=== PATIENT | male | born 1965 | race Asian ===

== ENCOUNTER → 2016-07-02 | Outpatient (CLI) | payer OTHER ==
[~2016-07-02] MED LIST: NAPR220C15 PO
[2016-07-02 11:44] LABS: BASOPHILS % (AUTO) 0.7 % (0.0-2.0); EOSINOPHILS % (AUTO) 2.8 % (1.0-6.0); HEMATOCRIT 51.8 % (41-53); LYMPHOCYTES % (AUTO) 27.7 % (22.0-44.0); MEAN CORPUSCULAR HEMOGLOBIN 29.2 pg (26.0-34.0); MEAN CORPUSCULAR HGB CONC 32.9 G/dL (31.0-37.0); MEAN CORPUSCULAR VOLUME 89 fL (80-100); MONOCYTES # (AUTO) 0.8 K/uL (0.1-1.0); MONOCYTES % (AUTO) 7.4 % (2.0-9.0); NEUTROPHILS # (AUTO) 6.6 K/uL (1.8-7.7); NEUTROPHILS % (AUTO) 61.4 % (40.0-70.0); PLATELET COUNT (AUTO) 280 K/uL (150-450); RED BLOOD CELL COUNT(AUTO) 5.82 MIL/uL (4.50-5.90); RED CELL DISTRIBUTION WIDTH 14.5 % (11.5-14.5); WHITE BLOOD COUNT (AUTO) 10.7 K/uL (4.5-11.0)
[2016-07-02 12:08] LABS: ALANINE AMINOTRANSFERASE 39 U/L (12-78); ALBUMIN 4.1 g/dL (3.4-5.0); ANION GAP 10 mmol/L (8-16); ASPARTATE AMINOTRANSFERASE 27 U/L (15-37); BILIRUBIN,TOTAL 0.5 mg/dL (0.1-1.0); CALCIUM, TOTAL 8.6 mg/dL (8.8-10.5); CARBON DIOXIDE 26 mmol/L (22-29); CHLORIDE 104 mmol/L (98-107); CHOL/HDL RATIO 3.4 (4.2-7.3); CREATININE 0.77 mg/dL (0.60-1.30); GLOMERULAR FILTR. RATE CALC > 60 mL/min (>60); SODIUM SERUM 140 mmol/L (136-145); TOTAL PROTEIN, SERUM 8.2 g/dL (6.4-8.2); UREA NITROGEN, BLOOD 13 mg/dL (7-18)
== END | disposition home or self-care (01) ==
LOC: LABPV 11:09
PROVIDERS: ATTEND Internal Medicine
DX: E78.2 Mixed hyperlipidemia (principal); R73.09 Other abnormal glucose
CPT/HCPCS: 83036; 84443

== ENCOUNTER → 2016-08-22 | Outpatient (CLI) | payer OTHER | END | disposition home or self-care (01) | LOC: EMPHLTH 12:18 | PROVIDERS: ATTEND Internal Medicine | DX: R76.11 Nonspecific reaction to tuberculin skin test without active tuberculosis (principal) ==

== ENCOUNTER → 2017-02-27 | Outpatient (CLI) | payer OTHER ==
[2017-02-27 08:04] LABS: HEMOGLOBIN A1C 6.1 % (4.5-6.2)
[2017-02-27 08:25] LABS: ALANINE AMINOTRANSFERASE 41 U/L (12-78); ALBUMIN 4.1 g/dL (3.4-5.0); ANION GAP 8 mmol/L (8-16); ASPARTATE AMINOTRANSFERASE 33 U/L (15-37); BILIRUBIN,TOTAL 0.4 mg/dL (0.1-1.0); CALCIUM, TOTAL 9.3 mg/dL (8.8-10.5); CARBON DIOXIDE 26 mmol/L (22-29); CHLORIDE 103 mmol/L (98-107); CHOL/HDL RATIO 3.5 (4.2-7.3); CREATININE 0.88 mg/dL (0.60-1.30); GLOMERULAR FILTR. RATE CALC > 60 mL/min (>60); POTASSIUM 3.9 mmol/L (3.5-5.1); SODIUM SERUM 137 mmol/L (136-145); THYROID STIMULATING HORMONE 1.48 uIU/mL (0.36-3.74); TOTAL PROTEIN, SERUM 8.3 g/dL (6.4-8.2); UREA NITROGEN, BLOOD 14 mg/dL (7-18)
== END | disposition home or self-care (01) ==
LOC: LABPV 07:37
PROVIDERS: ATTEND Internal Medicine
DX: E78.2 Mixed hyperlipidemia (principal); R73.09 Other abnormal glucose
CPT/HCPCS: 83036; 84443

== ENCOUNTER → 2017-08-11 | Outpatient (CLI) | payer OTHER ==
[2017-08-11 07:50] LABS: BASOPHILS % (AUTO) 0.3 % (0.0-2.0); EOSINOPHILS % (AUTO) 2.7 % (1.0-6.0); HEMATOCRIT 50.2 % (41-53); HEMOGLOBIN 17.1 g/dL (13.5-17.5); LYMPHOCYTES # (AUTO) 2.4 K/uL (1.0-4.8); LYMPHOCYTES % (AUTO) 24.4 % (22.0-44.0); MEAN CORPUSCULAR HEMOGLOBIN 29.9 pg (26.0-34.0); MEAN CORPUSCULAR VOLUME 88 fL (80-100); MONOCYTES # (AUTO) 0.7 K/uL (0.1-1.0); MONOCYTES % (AUTO) 7.4 % (2.0-9.0); NEUTROPHILS # (AUTO) 6.3 K/uL (1.8-7.7); NEUTROPHILS % (AUTO) 65.2 % (40.0-70.0); PLATELET COUNT (AUTO) 296 K/uL (150-450); RED BLOOD CELL COUNT(AUTO) 5.72 MIL/uL (4.50-5.90); RED CELL DISTRIBUTION WIDTH 14.4 % (11.5-14.5)
[2017-08-11 08:03] LABS: ALANINE AMINOTRANSFERASE 55 U/L (12-78); ALBUMIN 3.9 g/dL (3.4-5.0); ALKALINE PHOSPHATASE 100 U/L (46-116); ANION GAP 9 mmol/L (8-16); ASPARTATE AMINOTRANSFERASE 31 U/L (15-37); BILIRUBIN,TOTAL 0.5 mg/dL (0.1-1.0); CALCIUM, TOTAL 9.3 mg/dL (8.8-10.5); CARBON DIOXIDE 26 mmol/L (22-29); CHLORIDE 103 mmol/L (98-107); CHOL/HDL RATIO 3.4 (4.2-7.3); CHOLESTEROL 171 mg/dL (131-200); CREATININE 0.87 mg/dL (0.60-1.30); GLOMERULAR FILTR. RATE CALC > 60 mL/min (>60); GLUCOSE,RANDOM 93 mg/dL (70-110); HDL CHOLESTEROL 51 mg/dL (40-60); LDL CHOL (CALC.) 102 mg/dL (0-130); POTASSIUM 4.2 mmol/L (3.5-5.1); SODIUM SERUM 138 mmol/L (136-145); THYROID STIMULATING HORMONE 1.32 uIU/mL (0.36-3.74); TOTAL PROTEIN, SERUM 8.3 g/dL (6.4-8.2); TRIGLYCERIDES 88 mg/dL (15-150); UREA NITROGEN, BLOOD 13 mg/dL (7-18)
[2017-08-11 08:14] LABS: HEMOGLOBIN A1C 5.8 % (4.5-6.2)
[2017-08-11 08:19] LABS: PROSTATE SPECIFIC ANTIGEN 1.01 ng/mL (0.00-4.00)
[2017-08-11 09:02] LABS: APPEARANCE,URINE CLEAR (CLEAR); BILIRUBIN,URINE NEGATIVE (NEGATIVE); GLUCOSE, URINE (UA) NEGATIVE (NEGATIVE); KETONES,URINE NEGATIVE (NEGATIVE); LEUKOCYTE ESTERASE ,URINE NEGATIVE (NEGATIVE); NITRATE,URINE NEGATIVE (NEGATIVE); OCCULT BLOOD,URINE NEGATIVE (NEGATIVE); PROTEIN,URINE NEGATIVE (NEGATIVE); UROBILINOGEN,URINE 0.2 mg/dL (<=1.0)
[2017-08-11 09:45] LABS: ERYTHROCYTE SEDIMENTATION RATE 5 MM/HR (0-15)
== END | disposition home or self-care (01) ==
LOC: LABPV 07:07
PROVIDERS: ATTEND Internal Medicine
DX: E78.5 Hyperlipidemia, unspecified (principal); N40.0 Benign prostatic hyperplasia without lower urinary tract symptoms; R73.03 Prediabetes
CPT/HCPCS: 83036; 84153; 84443; 85651

== ENCOUNTER → 2017-12-30 | Outpatient (CLI) | payer OTHER | END | disposition home or self-care (01) | LOC: RADPV 13:04 | PROVIDERS: ATTEND Internal Medicine | DX: L74.513 Primary focal hyperhidrosis, soles (principal); R42 Dizziness and giddiness; I10 Essential (primary) hypertension; E78.2 Mixed hyperlipidemia; Z87.891 Personal history of nicotine dependence; Z79.899 Other long term (current) drug therapy | CPT/HCPCS: 93306; 93880 ==

== ENCOUNTER → 2018-04-29 | Outpatient (CLI) | payer OTHER ==
[2018-04-29 15:00] LABS: ALANINE AMINOTRANSFERASE 31 U/L (12-78); ALBUMIN 3.7 g/dL (3.4-5.0); ALKALINE PHOSPHATASE 99 U/L (46-116); ANION GAP 7 mmol/L (8-16); ASPARTATE AMINOTRANSFERASE 25 U/L (15-37); BILIRUBIN,TOTAL 0.2 mg/dL (0.1-1.0); CALCIUM, TOTAL 8.9 mg/dL (8.8-10.5); CARBON DIOXIDE 27 mmol/L (22-29); CHLORIDE 104 mmol/L (98-107); CHOL/HDL RATIO 3.9 (4.2-7.3); CHOLESTEROL 190 mg/dL (131-200); GLOMERULAR FILTR. RATE CALC > 60 mL/min (>60); GLUCOSE,RANDOM 74 mg/dL (70-110); HDL CHOLESTEROL 49 mg/dL (40-60); LDL CHOL (CALC.) 114 mg/dL (0-130); SODIUM SERUM 138 mmol/L (136-145); TOTAL PROTEIN, SERUM 7.6 g/dL (6.4-8.2); TRIGLYCERIDES 133 mg/dL (15-150); UREA NITROGEN, BLOOD 17 mg/dL (7-18)
[2018-04-29 15:13] LABS: PROSTATE SPECIFIC ANTIGEN 1.03 ng/mL (0.00-4.00)
[2018-04-29 19:24] LABS: BASOPHILS % (AUTO) 1.3 % (0.0-2.0); HEMATOCRIT 47.6 % (41-53); HEMOGLOBIN 15.9 g/dL (13.5-17.5); LYMPHOCYTES # (AUTO) 3.4 K/uL (1.0-4.8); LYMPHOCYTES % (AUTO) 35.4 % (22.0-44.0); MEAN CORPUSCULAR HEMOGLOBIN 30.3 pg (26.0-34.0); MEAN CORPUSCULAR HGB CONC 33.5 G/dL (31.0-37.0); MEAN CORPUSCULAR VOLUME 91 fL (80-100); MONOCYTES # (AUTO) 0.8 K/uL (0.1-1.0); MONOCYTES % (AUTO) 8.1 % (2.0-9.0); NEUTROPHILS % (AUTO) 52.2 % (40.0-70.0); PLATELET COUNT (AUTO) 277 K/uL (150-450); RED BLOOD CELL COUNT(AUTO) 5.26 MIL/uL (4.50-5.90); RED CELL DISTRIBUTION WIDTH 13.9 % (11.5-14.5)
== END | disposition home or self-care (01) ==
LOC: LABPV 14:01
PROVIDERS: ATTEND Internal Medicine
DX: E78.2 Mixed hyperlipidemia (principal); N40.1 Benign prostatic hyperplasia with lower urinary tract symptoms; R73.09 Other abnormal glucose; F17.200 Nicotine dependence, unspecified, uncomplicated
CPT/HCPCS: 83036; 84153

== ENCOUNTER → 2018-10-06 | Outpatient (CLI) | payer OTHER | END | disposition home or self-care (01) | LOC: RADMN 08:22 | PROVIDERS: ATTEND Specialist | DX: I67.82 Cerebral ischemia (principal) | CPT/HCPCS: 70551 ==

== ENCOUNTER → 2019-12-22 | Outpatient (CLI) | payer OTHER | END | disposition home or self-care (01) | LOC: EMS 12:01 | DX: Z20.828 Contact with and (suspected) exposure to other viral communicable diseases (principal) | CPT/HCPCS: U0003-CS ==

== ENCOUNTER → 2020-03-22 | Outpatient (CLI) | payer OTHER ==
[2020-03-22 11:18] LABS: BASOPHILS % (AUTO) 1.3 % (0.0-2.0); EOSINOPHILS % (AUTO) 2.1 % (1.0-6.0); HEMATOCRIT 50.1 % (41-53); HEMOGLOBIN 16.5 g/dL (13.5-17.5); LYMPHOCYTES # (AUTO) 2.4 K/uL (1.0-4.8); LYMPHOCYTES % (AUTO) 27.4 % (22.0-44.0); MEAN CORPUSCULAR VOLUME 91 fL (80-100); MONOCYTES # (AUTO) 0.7 K/uL (0.1-1.0); MONOCYTES % (AUTO) 7.8 % (2.0-9.0); NEUTROPHILS # (AUTO) 5.4 K/uL (1.8-7.7); NEUTROPHILS % (AUTO) 61.4 % (40.0-70.0); PLATELET COUNT (AUTO) 290 K/uL (150-450); RED CELL DISTRIBUTION WIDTH 14.6 % (11.5-14.5)
[2020-03-22 11:21] LABS: HEMOGLOBIN A1C 5.7 % (3.8-5.6)
[2020-03-22 11:35] LABS: ALANINE AMINOTRANSFERASE 32 U/L (12-78); ALBUMIN 3.9 g/dL (3.4-5.0); ALKALINE PHOSPHATASE 104 U/L (46-116); ANION GAP 9 mmol/L (8-16); ASPARTATE AMINOTRANSFERASE 31 U/L (15-37); BILIRUBIN,TOTAL 0.5 mg/dL (0.1-1.0); CALCIUM, TOTAL 9.1 mg/dL (8.8-10.5); CARBON DIOXIDE 26 mmol/L (22-29); CHLORIDE 106 mmol/L (98-107); CHOL/HDL RATIO 3.7 (4.2-7.3); CHOLESTEROL 221 mg/dL (131-200); CREATININE 0.84 mg/dL (0.60-1.30); GLOMERULAR FILTR. RATE CALC > 60 mL/min (>60); GLUCOSE,RANDOM 86 mg/dL (70-110); HDL CHOLESTEROL 60 mg/dL (40-60); LDL CHOL (CALC.) 149 mg/dL (0-130); POTASSIUM 4.4 mmol/L (3.5-5.1); SODIUM SERUM 141 mmol/L (136-145); THYROID STIMULATING HORMONE 1.14 uIU/mL (0.36-3.74); TOTAL PROTEIN, SERUM 8.1 g/dL (6.4-8.2); TRIGLYCERIDES 60 mg/dL (15-150); UREA NITROGEN, BLOOD 12 mg/dL (7-18)
== END | disposition home or self-care (01) ==
LOC: LABPV 07:26
PROVIDERS: ATTEND Internal Medicine
DX: E11.9 Type 2 diabetes mellitus without complications (principal); E78.5 Hyperlipidemia, unspecified
CPT/HCPCS: 83036; 84443

== ENCOUNTER → 2020-03-26 | Outpatient (CLI) | payer OTHER | END | disposition home or self-care (01) | LOC: RADPV 07:50 | PROVIDERS: ATTEND Internal Medicine | DX: R19.04 Left lower quadrant abdominal swelling, mass and lump (principal) | CPT/HCPCS: 76700 ==

== ENCOUNTER → 2020-08-17 | Outpatient (CLI) | payer OTHER | END | disposition home or self-care (01) | LOC: RADMN 10:42 | PROVIDERS: ATTEND Internal Medicine | DX: R76.11 Nonspecific reaction to tuberculin skin test without active tuberculosis (principal) | CPT/HCPCS: 71045 ==

== ENCOUNTER 2021-02-14 09:28 | Emergency (ER) | payer OTHER ==
[~2021-02-14] VITALS: Ht 167.6 cm; Wt 72.7 kg
[2021-02-14 10:14] VITALS: BP 137/72
== END 2021-02-14 10:30 | disposition home or self-care (01) ==
LOC: EMS 09:34
DX: L03.211 Cellulitis of face (principal); L02.01 Cutaneous abscess of face
CPT/HCPCS: 99283

== ENCOUNTER 2021-02-18 09:45 | Emergency (ER) | payer OTHER ==
[~2021-02-18] VITALS: Ht 170.2 cm; Wt 73.6 kg
[2021-02-18 09:48] VITALS: BP 127/80
== END 2021-02-18 13:17 | disposition home or self-care (01) ==
LOC: EMS 09:46
DX: L03.211 Cellulitis of face (principal); L02.01 Cutaneous abscess of face
CPT/HCPCS: 10060; 99281; 99282; Z7502

== ENCOUNTER 2022-01-24 10:21 | Emergency (ER) | payer OTHER ==
[~2022-01-24] VITALS: Ht 172.7 cm; Wt 72.7 kg
[2022-01-24] MEDS ORDERED: KETOROLAC TROMETHAMINE 60 MG/2 ML VIAL IM ONE (11:15)
[2022-01-24] MEDS ORDERED: IBUP-2070 PO (12:30)
[2022-01-24 12:41] VITALS: BP 146/85
== END 2022-01-24 12:45 | disposition home or self-care (01) ==
LOC: EMS 10:25
DX: R51.9 Headache, unspecified (principal); F17.210 Nicotine dependence, cigarettes, uncomplicated
CPT/HCPCS: 99284; 70450; 96372; J1885

== ENCOUNTER → 2022-01-30 | Outpatient (CLI) | payer OTHER ==
[~2022-01-30] MED LIST changes: +IBUP-2070 PO
[2022-01-30 06:49] LABS: BASOPHILS % (AUTO) 1.4 % (0.0-2.0); EOSINOPHILS % (AUTO) 1.7 % (1.0-6.0); HEMATOCRIT 48.6 % (41-53); HEMOGLOBIN 16.3 g/dL (13.5-17.5); LYMPHOCYTES # (AUTO) 3.7 K/uL (1.0-4.8); LYMPHOCYTES % (AUTO) 39.7 % (22.0-44.0); MEAN CORPUSCULAR HEMOGLOBIN 30.2 pg (26.0-34.0); MEAN CORPUSCULAR HGB CONC 33.6 G/dL (31.0-37.0); MEAN CORPUSCULAR VOLUME 90 fL (80-100); MONOCYTES # (AUTO) 0.8 K/uL (0.1-1.0); MONOCYTES % (AUTO) 8.7 % (2.0-9.0); NEUTROPHILS # (AUTO) 4.5 K/uL (1.8-7.7); NEUTROPHILS % (AUTO) 48.5 % (40.0-70.0); PLATELET COUNT (AUTO) 274 K/uL (150-450); RED BLOOD CELL COUNT(AUTO) 5.39 MIL/uL (4.50-5.90); RED CELL DISTRIBUTION WIDTH 14.3 % (11.5-14.5)
[2022-01-30 07:02] LABS: HEMOGLOBIN A1C 5.8 % (3.8-5.6)
[2022-01-30 07:21] LABS: ALANINE AMINOTRANSFERASE 47 U/L (12-78); ALBUMIN 3.8 g/dL (3.4-5.0); ALKALINE PHOSPHATASE 91 U/L (46-116); ANION GAP 9 mmol/L (8-16); ASPARTATE AMINOTRANSFERASE 23 U/L (15-37); BILIRUBIN,TOTAL 0.5 mg/dL (0.1-1.0); CALCIUM, TOTAL 9.1 mg/dL (8.8-10.5); CARBON DIOXIDE 26 mmol/L (22-29); CHLORIDE 105 mmol/L (98-107); CHOL/HDL RATIO 3.2 (4.2-7.3); CHOLESTEROL 194 mg/dL (131-200); CREATININE 0.98 mg/dL (0.60-1.30); GLUCOSE,RANDOM 100 mg/dL (70-110); HDL CHOLESTEROL 61 mg/dL (40-60); LDL CHOL (CALC.) 116 mg/dL (0-130); POTASSIUM 3.9 mmol/L (3.5-5.1); SODIUM SERUM 140 mmol/L (136-145); THYROID STIMULATING HORMONE 1.43 uIU/mL (0.36-3.74); TOTAL PROTEIN, SERUM 7.5 g/dL (6.4-8.2); TRIGLYCERIDES 87 mg/dL (15-150); UREA NITROGEN, BLOOD 18 mg/dL (7-18)
[2022-01-30 07:22] LABS: GLOMERULAR FILTR. RATE CALC > 60 mL/min (>60)
[2022-01-30 07:23] LABS: PROSTATE SPECIFIC ANTIGEN 1.26 ng/mL (0.00-4.00)
== END | disposition home or self-care (01) ==
LOC: EEVIPCON 05:50 → LABMN 05:50
PROVIDERS: ATTEND Internal Medicine
DX: E78.5 Hyperlipidemia, unspecified (principal)
CPT/HCPCS: 80053; 80061; 83036; 84153; 84443; 85025

== ENCOUNTER 2022-02-14 08:31 | Emergency (ER) | payer OTHER ==
[~2022-02-14] VITALS: Ht 170.2 cm; Wt 71.8 kg
[2022-02-14 08:38] VITALS: BP 128/90
[2022-02-14 10:08] LABS: INFLUENZA TYPE A NEGATIVE FOR TYPE A (NEGATIVE); INFLUENZA TYPE B NEGATIVE FOR TYPE B (NEGATIVE)
== END 2022-02-14 10:27 | disposition home or self-care (01) ==
LOC: EMS 08:38
DX: J06.9 Acute upper respiratory infection, unspecified (principal); Z20.822 Contact with and (suspected) exposure to COVID-19; F17.210 Nicotine dependence, cigarettes, uncomplicated
CPT/HCPCS: 99283; 87426; 87804; U0003; C9803

== ENCOUNTER 2023-03-15 12:24 | Inpatient (IN) | payer OTHER ==
[~2023-03-15] VITALS: Ht 175.3 cm; Wt 73.2 kg
[~2023-03-15 12:24] MED LIST changes: +IBUP-1492 PO; -IBUP-2070 PO
[2023-03-15] MEDS ORDERED: SUMA50TA17 PO (12:35)
[2023-03-15] MEDS ORDERED: VERA120T91 PO (12:35)
[2023-03-15 13:08] LABS: COVID AG,FIA SOURCE NASAL SWAB
[2023-03-15] MEDS ORDERED: ACETAMINOPHEN 500 MG TABLET PO ONE (13:15)
[2023-03-15 13:47] LABS: INFLUENZA TYPE A NEGATIVE FOR TYPE A (NEGATIVE); INFLUENZA TYPE B NEGATIVE FOR TYPE B (NEGATIVE)
[2023-03-15 13:48] LABS: SARS-COV2 (COVID) ANTIGEN,FIA Negative (Negative)
[2023-03-15] MEDS ORDERED: 0.9% SODIUM CHLORIDE 10 ML SYRINGE IVP PRN (15:15)
[2023-03-15] MEDS ORDERED: PIPERACILLIN/TAZO 3.375 GM/D5W 50 ML IV ONE (15:15)
[2023-03-15] MEDS ORDERED: SODIUM CHLORIDE 0.9% 2,150 ML IV ONE (15:15)
[2023-03-15 15:36] LABS: BASOPHILS % (AUTO) 1.1 % (0.0-2.0); EOSINOPHILS % (AUTO) 0.3 % (1.0-6.0); HEMATOCRIT 45.8 % (41-53); HEMOGLOBIN 15.5 g/dL (13.5-17.5); LYMPHOCYTES # (AUTO) 0.8 K/uL (1.0-4.8); LYMPHOCYTES % (AUTO) 6.4 % (22.0-44.0); MEAN CORPUSCULAR HEMOGLOBIN 30.8 pg (26.0-34.0); MEAN CORPUSCULAR HGB CONC 33.9 G/dL (31.0-37.0); MEAN CORPUSCULAR VOLUME 91 fL (80-100); MONOCYTES # (AUTO) 1.6 K/uL (0.1-1.0); MONOCYTES % (AUTO) 13.6 % (2.0-9.0); NEUTROPHILS # (AUTO) 9.5 K/uL (1.8-7.7); NEUTROPHILS % (AUTO) 78.6 % (40.0-70.0); PLATELET COUNT (AUTO) 227 K/uL (150-450); RED BLOOD CELL COUNT(AUTO) 5.04 MIL/uL (4.50-5.90); RED CELL DISTRIBUTION WIDTH 14.4 % (11.5-14.5); WHITE BLOOD COUNT (AUTO) 12.1 K/uL (4.5-11.0)
[2023-03-15 15:48] LABS: ANION GAP 7 mmol/L (8-16); CALCIUM, TOTAL 8.5 mg/dL (8.8-10.5); CARBON DIOXIDE 26 mmol/L (22-29); CHLORIDE 101 mmol/L (98-107); CREATININE 1.04 mg/dL (0.60-1.30); GLOMERULAR FILTR. RATE CALC > 60 mL/min (>60); GLUCOSE,RANDOM 92 mg/dL (70-110); POTASSIUM 3.5 mmol/L (3.5-5.1); SODIUM SERUM 134 mmol/L (136-145); UREA NITROGEN, BLOOD 12 mg/dL (7-18)
[2023-03-15 15:54] LABS: ALANINE AMINOTRANSFERASE 28 U/L (12-78); ALBUMIN 3.5 g/dL (3.4-5.0); ALKALINE PHOSPHATASE 105 U/L (46-116); ASPARTATE AMINOTRANSFERASE 25 U/L (15-37); BILIRUBIN,TOTAL 0.3 mg/dL (0.1-1.0); INR 1.1 (0.9-1.1); PROTHROMBIN TIME 11.1 SEC (9.4-11.6); TOTAL PROTEIN, SERUM 7.5 g/dL (6.4-8.2)
[2023-03-15 15:57] LABS: LACTIC ACID 0.8 mmol/L (0.4-2.0)
[2023-03-15 16:21] LABS: APPEARANCE,URINE CLEAR (CLEAR); BILIRUBIN,URINE NEGATIVE (NEGATIVE); COLOR,URINE YELLOW (YELLOW); GLUCOSE, URINE (UA) NEGATIVE (NEGATIVE); KETONES,URINE 40-60 mg/dL (NEGATIVE); LEUKOCYTE ESTERASE ,URINE NEGATIVE (NEGATIVE); NITRATE,URINE NEGATIVE (NEGATIVE); OCCULT BLOOD,URINE NEGATIVE (NEGATIVE); PROTEIN,URINE TRACE mg/dL (NEGATIVE); SPECIFIC GRAVITIY, URINE 1.029 (1.003-1.030); UROBILINOGEN,URINE <=1.0 mg/dL (<=1.0)
[2023-03-15] MEDS ORDERED: MAGNESIUM HYDROXIDE SUSPENSION 30 ML UDCUP PO PRN (17:00)
[2023-03-15] MEDS ORDERED: SODIUM CHLORIDE 0.9% 1,000 ML IV ONE (17:00)
[2023-03-15] MEDS ORDERED: ACETAMINOPHEN 325 MG TABLET PO PRN (17:00)
[2023-03-15] MEDS ORDERED: POTASSIUM CHLORIDE 10 MEQ ER TABLET PO ONE (17:00)
[2023-03-15] MEDS ORDERED: ONDANSETRON HCL 4 MG/2 ML VIAL IVP PRN (17:00)
[2023-03-15] MEDS ORDERED: SODIUM CHLORIDE 0.9% 100 ML ONE (17:36)
[2023-03-15] MEDS ORDERED: IOHEXOL 300 MG/ML 100 ML VIAL ONE (17:36)
[2023-03-15 18:53] VITALS: BP 148/72; PULSE 63; RESP 18; TEMP 98.4
[2023-03-15 19:52] VITALS: BP 129/79; PULSE 67; RESP 18; TEMP 98.3
[2023-03-15] MEDS ORDERED: PIPERACILLIN/TAZO 3.375 GM/D5W 50 ML IV SCH (22:00)
[2023-03-15] MEDS: PIPERACILLIN/TAZO 3.375 GM/D5W 50 ML IV SCH (22:22)
[2023-03-16] MEDS: HEPARIN SODIUM,PORCINE 5,000 UNITS/ML VIAL SQ SCH ×3 (00:26→16:42)
[2023-03-16 00:28] VITALS: BP 118/71; PULSE 70; RESP 19; TEMP 98.7
[2023-03-16 05:47] VITALS: BP 128/70; PULSE 75; RESP 17; TEMP 99.5
[2023-03-16 07:40] VITALS: BP 122/68; PULSE 71; RESP 20; TEMP 99.3; O2SAT 95
[2023-03-16 08:30] VITALS: BP 122/68; PULSE 71; RESP 18; TEMP 99.3
[2023-03-16] MEDS: PIPERACILLIN/TAZO 3.375 GM/D5W 50 ML IV SCH ×3 (09:57→22:43)
[2023-03-16] MEDS: FAMOTIDINE 20 MG TABLET PO SCH (09:58)
[2023-03-16 11:07] VITALS: BP 120/71; PULSE 63; RESP 18; TEMP 99
[2023-03-16 20:00] VITALS: BP 126/76; PULSE 60; RESP 18; TEMP 98.2
[2023-03-17] VITALS (7 sets, daily range): BP systolic 113–141; BP diastolic 58–85; PULSE 56–83; RESP 18; TEMP 97.9–98.2
[2023-03-17] MEDS: HEPARIN SODIUM,PORCINE 5,000 UNITS/ML VIAL SQ SCH ×3 (00:44→16:00)
[2023-03-17] MEDS: PIPERACILLIN/TAZO 3.375 GM/D5W 50 ML IV SCH ×4 (05:09→22:07)
[2023-03-17 07:36] LABS: BASOPHILS % (AUTO) 1.8 % (0.0-2.0); HEMATOCRIT 50.2 % (41-53); LYMPHOCYTES # (AUTO) 3.3 K/uL (1.0-4.8); LYMPHOCYTES % (AUTO) 45.8 % (22.0-44.0); MEAN CORPUSCULAR HEMOGLOBIN 30.9 pg (26.0-34.0); MEAN CORPUSCULAR HGB CONC 33.8 G/dL (31.0-37.0); MEAN CORPUSCULAR VOLUME 91 fL (80-100); MONOCYTES # (AUTO) 1.1 K/uL (0.1-1.0); MONOCYTES % (AUTO) 15.3 % (2.0-9.0); NEUTROPHILS # (AUTO) 2.6 K/uL (1.8-7.7); NEUTROPHILS % (AUTO) 36.1 % (40.0-70.0); PLATELET COUNT (AUTO) 243 K/uL (150-450); RED CELL DISTRIBUTION WIDTH 14.4 % (11.5-14.5); WHITE BLOOD COUNT (AUTO) 7.2 K/uL (4.5-11.0)
[2023-03-17] MEDS: FAMOTIDINE 20 MG TABLET PO SCH (09:41)
[2023-03-17 10:06] LABS: GLUCOMETER DEV NAME(LOC) 5N.2C; GLUCOSE,POINT OF CARE 89 MG/DL (70-110)
[2023-03-17] MEDS ORDERED: DEXTROSE 5%-0.45% SODIUM CHL 500 ML IV SCH (13:00)
[2023-03-17] MEDS ORDERED: FentaNYL CITRATE PF 100 MCG/2 ML VIAL ONE (13:54)
[2023-03-17] MEDS ORDERED: LIDOCAINE/PF 1% 30 ML VIAL ONE (13:54)
[2023-03-17] MEDS ORDERED: MIDAZOLAM HCL 2 MG/2 ML VIAL ONE (13:54)
[2023-03-17] MEDS ORDERED: LIDOCAINE 1% 30 ML/SOD BICARB 8.4% 4 ML SQ ONE (14:45)
[2023-03-17] MEDS ORDERED: MIDAZOLAM HCL 2 MG/2 ML VIAL IVP ONE (14:45)
[2023-03-17] MEDS ORDERED: FentaNYL CITRATE PF 100 MCG/2 ML VIAL IVP ONE ×2 (14:45)
[2023-03-17] MEDS: AZITHROMYCIN 500 MG TABLET PO SCH (17:29)
[2023-03-18] MEDS: HEPARIN SODIUM,PORCINE 5,000 UNITS/ML VIAL SQ SCH ×3 (00:06→16:43)
[2023-03-18 00:23] VITALS: BP 119/77; PULSE 58; RESP 18; TEMP 98.3
[2023-03-18 03:07] LABS: QUANTIFERON+, Nil Value 0.03 IU/mL; QUANTIFERON+,Mitogen Value >10.00 IU/mL; QUANTIFERON+,TB1 Antigen Value 0.03 IU/mL; QUANTIFERON+,TB2 Antigen Value 0.07 IU/mL; QUANTIFERON, TB GOLD PLUS Negative (Negative)
[2023-03-18] MEDS: PIPERACILLIN/TAZO 3.375 GM/D5W 50 ML IV SCH ×4 (03:29→21:33)
[2023-03-18 05:09] VITALS: BP 116/72; PULSE 61; RESP 18; TEMP 98.3
[2023-03-18 08:00] VITALS: BP 120/70; PULSE 60; RESP 18; TEMP 98.9
[2023-03-18] MEDS: AZITHROMYCIN 500 MG TABLET PO SCH (09:10)
[2023-03-18] MEDS: FAMOTIDINE 20 MG TABLET PO SCH (09:10)
[2023-03-18 14:13] VITALS: BP 121/57; PULSE 58; RESP 18; TEMP 98.9
[2023-03-18 16:41] VITALS: BP 118/80; PULSE 62; RESP 18; TEMP 98
[2023-03-18 20:00] VITALS: BP 114/76; PULSE 63; RESP 18; TEMP 97.9
[2023-03-18 21:02] LABS: MTB PCR w/Rif. Resistance-SPUT NOT DETECTED (Not Detectd)
[2023-03-19] VITALS: BP 112/65; PULSE 60; RESP 19; TEMP 98.3
[2023-03-19] MEDS ORDERED: SODIUM CHLORIDE 3% 15 ML NEB SOLUTION NEB ONE ×2 (00:04→09:06)
[2023-03-19] MEDS: HEPARIN SODIUM,PORCINE 5,000 UNITS/ML VIAL SQ SCH ×3 (00:34→17:58)
[2023-03-19] MEDS: PIPERACILLIN/TAZO 3.375 GM/D5W 50 ML IV SCH ×4 (03:17→21:53)
[2023-03-19] MEDS: FAMOTIDINE 20 MG TABLET PO SCH (08:41)
[2023-03-19] MEDS: AZITHROMYCIN 500 MG TABLET PO SCH (08:41)
[2023-03-19 08:45] VITALS: BP 117/75; PULSE 58; RESP 18; TEMP 98
[2023-03-19 09:07] LABS: HIV 1-2 SCREEN 4TH GEN W/RFLX Non Reactive (Non Reactive)
[2023-03-19 15:07] LABS: LEGIONELLA PNEUMO AG URINE Negative (Negative); S PNEUMO SOURCE Urine; STREP PNEUMONIAE AG URINE Negative (Negative)
[2023-03-19 16:03] VITALS: BP 126/88; PULSE 61; RESP 18; TEMP 98
[2023-03-19 19:55] VITALS: BP 124/74; PULSE 58; RESP 20; TEMP 98.3
[2023-03-20 00:25] VITALS: BP 114/78; PULSE 58; RESP 20; TEMP 98.2
[2023-03-20] MEDS: HEPARIN SODIUM,PORCINE 5,000 UNITS/ML VIAL SQ SCH ×2 (00:33→08:00)
[2023-03-20] MEDS: PIPERACILLIN/TAZO 3.375 GM/D5W 50 ML IV SCH ×2 (03:34→10:16)
[2023-03-20] MEDS: FAMOTIDINE 20 MG TABLET PO SCH (08:38)
[2023-03-20] MEDS: AZITHROMYCIN 500 MG TABLET PO SCH (08:39)
[2023-03-20 08:55] VITALS: BP 118/72; PULSE 64; RESP 18; TEMP 98
[2023-03-20] MEDS ORDERED: AZIT-104 PO (10:05)
[2023-03-24 11:07] LABS: COCCI IGG TITER COMP.FIX-KERN <1:2; COCCIOIDES AB IGG (ID)-KERN Non Reactive; COCCIOIDES AB IGM (ID)-KERN Non Reactive
== END 2023-03-20 11:10 | disposition home or self-care (01) | DRG 871 ==
LOC: EMS 12:24 → 5N 17:00 → 5S 03-16 14:15
PROVIDERS: ADMIT Internal Medicine; ATTEND Internal Medicine
PROC: 0BBG3ZX Excision of Left Upper Lung Lobe, Percutaneous Approach, Diagnostic (ICD-10-PCS; principal; 2023-03-17)
DX: A41.9 Sepsis, unspecified organism (principal); J18.9 Pneumonia, unspecified organism; J98.11 Atelectasis; J44.0 Chronic obstructive pulmonary disease with (acute) lower respiratory infection; C34.12 Malignant neoplasm of upper lobe, left bronchus or lung; I10 Essential (primary) hypertension; F17.210 Nicotine dependence, cigarettes, uncomplicated; Z20.822 Contact with and (suspected) exposure to COVID-19
CPT/HCPCS: 32408; 71045; 71260; 80053; 81003; 82962; 83605; 84145; 85025; 85610; 86171; 86480; 86738; 87015; 87040; 87116; 87206; 87305; 87389; 87430; 87449; 87556; 87804; 87899; 88305; 88341; 88342; 93005; 94640; 99285; J1644; J2250; J2543; J3010; J3490; J7050; J7060; Q9967; 36415-L1; 36415-TC; C9803

== ENCOUNTER → 2023-03-27 | Outpatient (CLI) | payer OTHER ==
[~2023-03-27] VITALS: Ht 170.2 cm; Wt 69.0 kg
[~2023-03-27] MED LIST changes: +AZIT-104 PO; -IBUP-1492 PO; -NAPR220C15 PO
[2023-03-27 10:37] VITALS: BP 135/76; PULSE 70; RESP 18; TEMP 98.5; O2SAT 100
== END | disposition home or self-care (01) ==
LOC: SRCNTR 10:20
PROVIDERS: ATTEND Internal Medicine Pulmonary Disease
DX: J44.9 Chronic obstructive pulmonary disease, unspecified (principal); C34.90 Malignant neoplasm of unspecified part of unspecified bronchus or lung; F17.200 Nicotine dependence, unspecified, uncomplicated
CPT/HCPCS: G0463; Z7500

== ENCOUNTER → 2023-12-16 | Outpatient (CLI) | payer OTHER ==
[~2023-12-16] MED LIST changes: -AZIT-104 PO; +AZIT-167 PO
== END | disposition home or self-care (01) ==
LOC: RADPV 05:41
PROVIDERS: ATTEND Internal Medicine
DX: K82.4 Cholesterolosis of gallbladder (principal); K21.9 Gastro-esophageal reflux disease without esophagitis; N40.0 Benign prostatic hyperplasia without lower urinary tract symptoms
CPT/HCPCS: 76700; 76856

== ENCOUNTER → 2023-12-25 | Outpatient (CLI) | payer OTHER ==
[~2023-12-25] MED LIST changes: +IOHEXOL 350 MG/ML 100 ML VIAL ONE; +IOHEXOL 9 MG/ML 500 ML BOTTLE ONE; +SODIUM CHLORIDE 0.9% 100 ML ONE
== END | disposition home or self-care (01) ==
LOC: RADMN 07:30
PROVIDERS: ATTEND Internal Medicine
DX: J98.4 Other disorders of lung (principal); N32.89 Other specified disorders of bladder; N28.1 Cyst of kidney, acquired
CPT/HCPCS: 74177; Q9967 ×2; J7050

== ENCOUNTER 2024-01-01 06:15 | Inpatient (IN) | payer OTHER ==
[~2024-01-01] VITALS: Ht 170.2 cm; Wt 70.5 kg
[~2024-01-01 06:15] MED LIST changes: -IOHEXOL 350 MG/ML 100 ML VIAL ONE; -IOHEXOL 9 MG/ML 500 ML BOTTLE ONE; -SODIUM CHLORIDE 0.9% 100 ML ONE
[2024-01-01] MEDS: PIPERACILLIN/TAZO 3.375 GM/D5W 50 ML IV ONE (06:55)
[2024-01-01] MEDS: MORPHINE SULFATE 2 MG/ML SYRINGE IVP ONE (06:56)
[2024-01-01] MEDS: ONDANSETRON HCL 4 MG/2 ML VIAL IVP ONE (06:56)
[2024-01-01] MEDS: SODIUM CHLORIDE 0.9% 1,000 ML IV ONE (06:57)
[2024-01-01 07:01] LABS: BASOPHILS % (AUTO) 0.7 % (0.0-2.0); EOSINOPHILS % (AUTO) 1.2 % (1.0-6.0); HEMATOCRIT 34.6 % (41-53); HEMOGLOBIN 11.1 g/dL (13.5-17.5); LYMPHOCYTES # (AUTO) 1.4 K/uL (1.0-4.8); LYMPHOCYTES % (AUTO) 9.6 % (22.0-44.0); MEAN CORPUSCULAR HEMOGLOBIN 27.6 pg (26.0-34.0); MEAN CORPUSCULAR HGB CONC 32.1 G/dL (31.0-37.0); MEAN CORPUSCULAR VOLUME 86 fL (80-100); MONOCYTES # (AUTO) 1.4 K/uL (0.1-1.0); MONOCYTES % (AUTO) 9.5 % (2.0-9.0); NEUTROPHILS # (AUTO) 11.2 K/uL (1.8-7.7); PLATELET COUNT (AUTO) 579 K/uL (150-450); RED BLOOD CELL COUNT(AUTO) 4.02 MIL/uL (4.50-5.90); WHITE BLOOD COUNT (AUTO) 14.2 K/uL (4.5-11.0)
[2024-01-01 07:13] LABS: APPEARANCE,URINE HAZY (CLEAR); COLOR,URINE DARK YELLOW (YELLOW); GLUCOSE, URINE (UA) NEGATIVE (NEGATIVE); KETONES,URINE TRACE mg/dL (NEGATIVE); LEUKOCYTE ESTERASE ,URINE TRACE (NEGATIVE); NITRATE,URINE NEGATIVE (NEGATIVE); OCCULT BLOOD,URINE NEGATIVE (NEGATIVE); PH,URINE 6.5 (5.0-8.0); PROTEIN,URINE 100-200,SEE CONFIRM mg/dL (NEGATIVE); SPECIFIC GRAVITIY, URINE 1.034 (1.003-1.030)
[2024-01-01] MEDS ORDERED: SODIUM CHLORIDE 0.9% 100 ML ONE (07:13)
[2024-01-01] MEDS ORDERED: IOHEXOL 350 MG/ML 100 ML VIAL ONE (07:13)
[2024-01-01 07:14] LABS: INR 1.1 (0.9-1.1); PROTHROMBIN TIME 11.1 SEC (9.4-11.6)
[2024-01-01 07:19] LABS: BILIRUBIN,URINE SMALL (NEGATIVE)
[2024-01-01 07:30] LABS: RBC,URINE None Seen /HPF (0-2); SULFOSALICYLIC ACID,URINE Trace (Negative); WBC,URINE 0-2 /HPF (0-5)
[2024-01-01 07:31] LABS: BACTERIA,URINE None Seen /HPF (None Seen); SQUAMOUS EPITHELIAL CELL,UR Few /LPF (None Seen)
[2024-01-01 07:36] LABS: ANION GAP 12 mmol/L (8-16); CALCIUM, TOTAL 8.9 mg/dL (8.8-10.5); CARBON DIOXIDE 23 mmol/L (22-29); CHLORIDE 100 mmol/L (98-107); CREATININE 0.86 mg/dL (0.60-1.30); GLOMERULAR FILTR. RATE CALC > 60 mL/min (>60); GLUCOSE,RANDOM 111 mg/dL (70-110); POTASSIUM 3.8 mmol/L (3.5-5.1); SODIUM SERUM 135 mmol/L (136-145); UREA NITROGEN, BLOOD 11 mg/dL (7-18)
[2024-01-01 07:42] LABS: ALANINE AMINOTRANSFERASE 33 U/L (12-78); ALBUMIN 2.7 g/dL (3.4-5.0); ALKALINE PHOSPHATASE 81 U/L (46-116); ASPARTATE AMINOTRANSFERASE 37 U/L (15-37); BILIRUBIN,TOTAL 0.3 mg/dL (0.1-1.0); CREATINE KINASE, TOTAL ONLY 32 U/L (39-308); LIPASE 48 U/L (16-77); TOTAL PROTEIN, SERUM 7.2 g/dL (6.4-8.2)
[2024-01-01] MEDS ORDERED: BISACODYL 10 MG RECTAL RECTAL SUPPOSITORY PR PRN (11:15)
[2024-01-01] MEDS ORDERED: ONDANSETRON HCL 4 MG/2 ML VIAL IVP PRN (11:15)
[2024-01-01] MEDS ORDERED: ACETAMINOPHEN 325 MG TABLET PO PRN (11:15)
[2024-01-01 15:20] VITALS: BP 120/71; PULSE 83; RESP 19; TEMP 99.1; O2SAT 97
[2024-01-01] MEDS: HEPARIN SODIUM,PORCINE 5,000 UNITS/ML VIAL SQ SCH (17:03)
[2024-01-01] MEDS: PEG 3350/NA SULF,BICARB,CL/KCL 4000 ML SOLUTION PO ONE (18:55)
[2024-01-01] MEDS: MORPHINE SULFATE 2 MG/ML SYRINGE IVP PRN (18:59)
[2024-01-01 19:53] VITALS: BP 118/73; PULSE 74; RESP 16; TEMP 98.5; O2SAT 98
[2024-01-01] MEDS: DOCUSATE SODIUM 100 MG CAPSULE PO SCH (20:24)
[2024-01-02 04:56] VITALS: BP 114/67; PULSE 76; RESP 18; TEMP 98.4; O2SAT 98
[2024-01-02 07:25] LABS: BASOPHILS % (AUTO) 1.3 % (0.0-2.0); EOSINOPHILS % (AUTO) 1.4 % (1.0-6.0); HEMOGLOBIN 10.9 g/dL (13.5-17.5); LYMPHOCYTES # (AUTO) 1.7 K/uL (1.0-4.8); LYMPHOCYTES % (AUTO) 13.6 % (22.0-44.0); MEAN CORPUSCULAR HEMOGLOBIN 27.7 pg (26.0-34.0); MEAN CORPUSCULAR HGB CONC 32.2 G/dL (31.0-37.0); MEAN CORPUSCULAR VOLUME 86 fL (80-100); MONOCYTES # (AUTO) 1.3 K/uL (0.1-1.0); MONOCYTES % (AUTO) 10.4 % (2.0-9.0); NEUTROPHILS % (AUTO) 73.3 % (40.0-70.0); PLATELET COUNT (AUTO) 594 K/uL (150-450); RED BLOOD CELL COUNT(AUTO) 3.95 MIL/uL (4.50-5.90); RED CELL DISTRIBUTION WIDTH 14.7 % (11.5-14.5); WHITE BLOOD COUNT (AUTO) 12.2 K/uL (4.5-11.0)
[2024-01-02 08:16] VITALS: BP 108/64; PULSE 69; RESP 18; TEMP 98.5; O2SAT 97
[2024-01-02] MEDS: PANTOPRAZOLE SODIUM 40 MG DR TABLET PO SCH (11:45)
[2024-01-02 15:48] VITALS: BP 111/63; PULSE 78; RESP 18; TEMP 98.8; O2SAT 97
[2024-01-02 19:45] VITALS: BP 110/71; PULSE 77; RESP 18; TEMP 98.2; O2SAT 96
[2024-01-03] VITALS (9 sets, daily range): BP systolic 101–116; BP diastolic 59–74; PULSE 61–80; RESP 18–20; TEMP 97.7–98.9; O2SAT 95–100
[2024-01-03] MEDS ORDERED: MetroNIDAZOLE 500 MG/NACL 100 ML IV ONE (08:35)
[2024-01-03] MEDS ORDERED: HYDROmorphone HCL 2 MG/ML SYRINGE IVP PRN (09:30)
[2024-01-03] MEDS ORDERED: MEPERIDINE-PF 25 MG/ML VIAL IVP PRN (09:30)
[2024-01-03] MEDS ORDERED: FentaNYL CITRATE PF 100 MCG/2 ML VIAL IVP PRN (09:30)
[2024-01-03] MEDS: BUPIVACAINE HCL/PF 0.5% 30 ML VIAL ONE (09:41)
[2024-01-03] MEDS: BUPIVACAINE LIPOSOME/PF 1.3%-13.3MG/ML SUSP 20 ML VIAL INJ ONE (09:41)
[2024-01-03] MEDS ORDERED: METOCLOPRAMIDE HCL 5 MG/ML 2 ML VIAL IVP PRN (10:00)
[2024-01-03] MEDS ORDERED: KETOROLAC TROMETHAMINE 60 MG/2 ML VIAL IM ONE (12:00)
[2024-01-03] MEDS ORDERED: SUGAMMADEX SODIUM 200 MG/2 ML VIAL IVP ONE (12:00)
[2024-01-03] MEDS ORDERED: HYDROmorphone HCL 2 MG/ML SYRINGE IVP ONE (12:00)
[2024-01-03] MEDS ORDERED: ACETAMINOPHEN/ISO-OSM 1000 MG/100 ML BOTTLE IV ONE (12:00)
[2024-01-03] MEDS ORDERED: ROCURONIUM BROMIDE 10 MG/ML 5 ML VIAL IVP ONE (12:00)
[2024-01-03] MEDS ORDERED: FentaNYL CITRATE PF 100 MCG/2 ML VIAL IVP ONE (12:00)
[2024-01-03] MEDS ORDERED: 0.9% SODIUM CHLORIDE 10 ML VIAL IVP ONE (12:00)
[2024-01-03] MEDS ORDERED: MIDAZOLAM HCL 2 MG/2 ML VIAL IVP ONE (12:00)
[2024-01-03] MEDS ORDERED: PROPOFOL 1% 20 ML VIAL IVP ONE (12:00)
[2024-01-03] MEDS ORDERED: DEXAMETHASONE SOD PHOS 4 MG/ML VIAL IVP ONE (12:00)
[2024-01-03] MEDS ORDERED: CeFAZolin SODIUM 1 GM VIAL IVP ONE (12:00)
[2024-01-03] MEDS ORDERED: LIDOCAINE/PF 2% 5 ML VIAL IM ONE (12:00)
[2024-01-03] MEDS ORDERED: ONDANSETRON HCL 4 MG/2 ML VIAL IVP ONE (12:00)
[2024-01-03] MEDS: CeFAZolin 1 GM/DEXTROSE 50 ML IV SCH (12:35)
[2024-01-03 12:48] LABS: BASOPHILS % (AUTO) 0.3 % (0.0-2.0); EOSINOPHILS % (AUTO) 0 % (1.0-6.0); HEMATOCRIT 34.2 % (41-53); HEMOGLOBIN 10.8 g/dL (13.5-17.5); LYMPHOCYTES # (AUTO) 0.5 K/uL (1.0-4.8); LYMPHOCYTES % (AUTO) 2.5 % (22.0-44.0); MEAN CORPUSCULAR HEMOGLOBIN 27.2 pg (26.0-34.0); MEAN CORPUSCULAR HGB CONC 31.7 G/dL (31.0-37.0); MEAN CORPUSCULAR VOLUME 86 fL (80-100); MONOCYTES # (AUTO) 0.2 K/uL (0.1-1.0); NEUTROPHILS # (AUTO) 17.8 K/uL (1.8-7.7); PLATELET COUNT (AUTO) 599 K/uL (150-450); RED BLOOD CELL COUNT(AUTO) 3.98 MIL/uL (4.50-5.90); RED CELL DISTRIBUTION WIDTH 14.7 % (11.5-14.5); WHITE BLOOD COUNT (AUTO) 18.5 K/uL (4.5-11.0)
[2024-01-03 12:54] LABS: NEUTROPHILS % (AUTO) 96.2 % (40.0-70.0)
[2024-01-03 13:03] LABS: ALANINE AMINOTRANSFERASE 19 U/L (12-78); ALBUMIN 2.4 g/dL (3.4-5.0); ALKALINE PHOSPHATASE 74 U/L (46-116); ANION GAP 16 mmol/L (8-16); ASPARTATE AMINOTRANSFERASE 22 U/L (15-37); BILIRUBIN,TOTAL 0.3 mg/dL (0.1-1.0); CALCIUM, TOTAL 8.3 mg/dL (8.8-10.5); CARBON DIOXIDE 20 mmol/L (22-29); CHLORIDE 103 mmol/L (98-107); GLOMERULAR FILTR. RATE CALC > 60 mL/min (>60); GLUCOSE,RANDOM 89 mg/dL (70-110); POTASSIUM 4.3 mmol/L (3.5-5.1); SODIUM SERUM 139 mmol/L (136-145); TOTAL PROTEIN, SERUM 6.7 g/dL (6.4-8.2); UREA NITROGEN, BLOOD 11 mg/dL (7-18)
[2024-01-03] MEDS: OXYGEN THERAPY IH SCH (20:00)
[2024-01-03] MEDS: HYDROmorphone HCL 2 MG/ML SYRINGE IVP PRN (22:03)
[2024-01-04 05:06] VITALS: BP 126/71; PULSE 80; RESP 18; TEMP 98.3; O2SAT 95
[2024-01-04] MEDS: HYDROCODONE/ACETAMINOPHEN 5-325 MG TABLET PO PRN (05:09)
[2024-01-04 09:00] VITALS: BP 118/77; PULSE 72; RESP 18; TEMP 98.8; O2SAT 98
[2024-01-04 15:07] VITALS: BP 111/67; PULSE 75; RESP 18; TEMP 97.9; O2SAT 93
[2024-01-04 19:40] VITALS: BP 120/70; PULSE 68; RESP 18; TEMP 98.3; O2SAT 96
[2024-01-04] MEDS: MAGNESIUM HYDROXIDE SUSPENSION 30 ML UDCUP PO PRN (20:02)
[2024-01-05 05:24] VITALS: BP 118/67; PULSE 69; RESP 18; TEMP 98.1; O2SAT 95
[2024-01-05 08:14] LABS: BASOPHILS % (AUTO) 0.7 % (0.0-2.0); LYMPHOCYTES # (AUTO) 1.2 K/uL (1.0-4.8); LYMPHOCYTES % (AUTO) 13.1 % (22.0-44.0); MEAN CORPUSCULAR HEMOGLOBIN 27.6 pg (26.0-34.0); MEAN CORPUSCULAR HGB CONC 32.4 G/dL (31.0-37.0); MEAN CORPUSCULAR VOLUME 85 fL (80-100); MONOCYTES # (AUTO) 0.6 K/uL (0.1-1.0); MONOCYTES % (AUTO) 6.9 % (2.0-9.0); NEUTROPHILS # (AUTO) 7.1 K/uL (1.8-7.7); NEUTROPHILS % (AUTO) 77.3 % (40.0-70.0); PLATELET COUNT (AUTO) 620 K/uL (150-450); RED CELL DISTRIBUTION WIDTH 14.5 % (11.5-14.5); WHITE BLOOD COUNT (AUTO) 9.2 K/uL (4.5-11.0)
[2024-01-05 08:17] LABS: ALANINE AMINOTRANSFERASE 16 U/L (12-78); ALBUMIN 2.7 g/dL (3.4-5.0); ALKALINE PHOSPHATASE 92 U/L (46-116); ANION GAP 10 mmol/L (8-16); ASPARTATE AMINOTRANSFERASE 31 U/L (15-37); BILIRUBIN,TOTAL 0.3 mg/dL (0.1-1.0); CALCIUM, TOTAL 8.6 mg/dL (8.8-10.5); CARBON DIOXIDE 28 mmol/L (22-29); CHLORIDE 102 mmol/L (98-107); CREATININE 1.05 mg/dL (0.60-1.30); GLOMERULAR FILTR. RATE CALC > 60 mL/min (>60); GLUCOSE,RANDOM 93 mg/dL (70-110); POTASSIUM 3.7 mmol/L (3.5-5.1); SODIUM SERUM 140 mmol/L (136-145); UREA NITROGEN, BLOOD 12 mg/dL (7-18)
[2024-01-05 08:39] VITALS: BP 128/67; PULSE 81; RESP 18; TEMP 98.1; O2SAT 98
[2024-01-05 15:41] VITALS: BP 133/77; PULSE 70; RESP 18; TEMP 97.8; O2SAT 96
[2024-01-05 19:32] VITALS: BP 111/73; PULSE 65; RESP 20; TEMP 98.2; O2SAT 97
[2024-01-06 04:33] VITALS: BP 115/76; PULSE 64; RESP 20; TEMP 98.2; O2SAT 98
[2024-01-06 07:10] LABS: BASOPHILS % (AUTO) 1.2 % (0.0-2.0); EOSINOPHILS % (AUTO) 3.8 % (1.0-6.0); HEMATOCRIT 37.8 % (41-53); HEMOGLOBIN 12.2 g/dL (13.5-17.5); LYMPHOCYTES # (AUTO) 1.8 K/uL (1.0-4.8); LYMPHOCYTES % (AUTO) 18.9 % (22.0-44.0); MEAN CORPUSCULAR HEMOGLOBIN 27.7 pg (26.0-34.0); MEAN CORPUSCULAR HGB CONC 32.3 G/dL (31.0-37.0); MEAN CORPUSCULAR VOLUME 86 fL (80-100); MONOCYTES # (AUTO) 0.6 K/uL (0.1-1.0); MONOCYTES % (AUTO) 6.7 % (2.0-9.0); NEUTROPHILS # (AUTO) 6.6 K/uL (1.8-7.7); NEUTROPHILS % (AUTO) 69.4 % (40.0-70.0); PLATELET COUNT (AUTO) 687 K/uL (150-450); RED BLOOD CELL COUNT(AUTO) 4.41 MIL/uL (4.50-5.90); RED CELL DISTRIBUTION WIDTH 14.8 % (11.5-14.5); WHITE BLOOD COUNT (AUTO) 9.6 K/uL (4.5-11.0)
[2024-01-06 08:40] VITALS: BP 124/79; PULSE 76; RESP 19; TEMP 98.7; O2SAT 98
[2024-01-06 08:46] LABS: ALANINE AMINOTRANSFERASE 37 U/L (12-78); ALKALINE PHOSPHATASE 87 U/L (46-116); ANION GAP 14 mmol/L (8-16); ASPARTATE AMINOTRANSFERASE 79 U/L (15-37); BILIRUBIN,TOTAL 0.3 mg/dL (0.1-1.0); CALCIUM, TOTAL 9.2 mg/dL (8.8-10.5); CARBON DIOXIDE 24 mmol/L (22-29); CHLORIDE 99 mmol/L (98-107); CREATININE 0.86 mg/dL (0.60-1.30); GLOMERULAR FILTR. RATE CALC > 60 mL/min (>60); GLUCOSE,RANDOM 77 mg/dL (70-110); SODIUM SERUM 137 mmol/L (136-145); TOTAL PROTEIN, SERUM 7.9 g/dL (6.4-8.2); UREA NITROGEN, BLOOD 9 mg/dL (7-18)
[2024-01-06] MEDS ORDERED: DOCU-119 PO (12:47)
== END 2024-01-06 14:09 | disposition home or self-care (01) | DRG 330 ==
LOC: EMS 06:15 → EDH 11:24 → 4E 15:06
PROVIDERS: ADMIT Internal Medicine; ATTEND Internal Medicine
PROC: 3E0M05Z Introduction of Adhesion Barrier into Peritoneal Cavity, Open Approach (ICD-10-PCS; 2024-01-03)
PROC: 0DBA0ZZ Excision of Jejunum, Open Approach (ICD-10-PCS; principal; 2024-01-03 09:00)
DX: C78.5 Secondary malignant neoplasm of large intestine and rectum (principal); E44.0 Moderate protein-calorie malnutrition; K63.2 Fistula of intestine; Z68.24 Body mass index [BMI] 24.0-24.9, adult; N28.1 Cyst of kidney, acquired; Z91.199 Patient's noncompliance with other medical treatment and regimen due to unspecified reason; Z92.3 Personal history of irradiation; Z85.118 Personal history of other malignant neoplasm of bronchus and lung
CPT/HCPCS: 74018; 74177; 80048; 80053; 80076; 81001; 81002; 82378; 82550; 83690; 85025; 85610; 85730; 86301; 86850; 86900; 86901; 87081; 88309; 88341; 88342; 99285; C9290; G0238; G0378; J0131; J0690; J1100; J1170; J1644; J1885; J2250; J2270; J2405; J2543; J2704; J3010; J3490; J7030; J7050; 36415-L1; 36415-TC; Z7610

== ENCOUNTER 2024-03-12 06:25 | Inpatient (IN) | payer BC, OTHER ==
[~2024-03-12] VITALS: Ht 177.8 cm; Wt 72.7 kg
[2024-03-12] VITALS (16 sets, daily range): BP systolic 69–155; BP diastolic 24–81; PULSE 40–90; RESP 16–28; TEMP 87.5–93.3; O2SAT 0–71
[~2024-03-12 06:25] MED LIST changes: -AZIT-167 PO; +DOCU-119 PO
[2024-03-12] MEDS ORDERED: NOREPINEPHRINE 8 MG/0.9 % NACL 250 ML IV ONE (06:44)
[2024-03-12] MEDS: PHENYLEPHRINE 200 MG/D5%-WATER 250 ML IV PRN (06:52)
[2024-03-12] MEDS ORDERED: DEXTROSE 50%-WATER 25 GM/50 ML SYRINGE IVP ONE (06:54)
[2024-03-12 07:04] LABS: BASOPHILS % (AUTO) 1.5 % (0.0-2.0); EOSINOPHILS % (AUTO) 0.9 % (1.0-6.0); LYMPHOCYTES # (AUTO) 2.6 K/uL (1.0-4.8); LYMPHOCYTES % (AUTO) 41.3 % (22.0-44.0); MEAN CORPUSCULAR HEMOGLOBIN 26.1 pg (26.0-34.0); MEAN CORPUSCULAR HGB CONC 28.4 G/dL (31.0-37.0); MEAN CORPUSCULAR VOLUME 92 fL (80-100); MONOCYTES # (AUTO) 0.2 K/uL (0.1-1.0); MONOCYTES % (AUTO) 2.4 % (2.0-9.0); NEUTROPHILS # (AUTO) 3.4 K/uL (1.8-7.7); NEUTROPHILS % (AUTO) 53.9 % (40.0-70.0); PLATELET COUNT (AUTO) 49 K/uL (150-450); RED BLOOD CELL COUNT(AUTO) 1.67 MIL/uL (4.50-5.90); RED CELL DISTRIBUTION WIDTH 23.7 % (11.5-14.5); WHITE BLOOD COUNT (AUTO) 6.3 K/uL (4.5-11.0)
[2024-03-12] MEDS: NOREPINEPHRINE 8 MG/0.9 % NACL 250 ML IV PRN (07:08)
[2024-03-12 07:09] LABS: HEMATOCRIT 15.4 % (41-53); HEMOGLOBIN 4.4 g/dL (13.5-17.5)
[2024-03-12] MEDS ORDERED: ACETAMINOPHEN 325 MG TABLET PO PRN (07:30)
[2024-03-12 07:39] LABS: PROTHROMBIN TIME 14.7 SEC (9.4-11.6)
[2024-03-12 07:48] LABS: ANION GAP 17 mmol/L (8-16); CARBON DIOXIDE 13 mmol/L (22-29); CHLORIDE 100 mmol/L (98-107); CREATINE KINASE, TOTAL ONLY 125 U/L (39-308); CREATININE 1.48 mg/dL (0.60-1.30); GLOMERULAR FILTR. RATE CALC 49 mL/min (>60); GLUCOSE,RANDOM 280 mg/dL (70-110); SODIUM SERUM 130 mmol/L (136-145); UREA NITROGEN, BLOOD 17 mg/dL (7-18)
[2024-03-12 07:49] LABS: TROPONIN I-HIGH SENSITIVITY 15 ng/L (<76)
[2024-03-12] MEDS: DOPamine 400MG/D5W[STANDARD] 250 ML IV PRN (07:49)
[2024-03-12 07:50] LABS: AMMONIA 255 umol/L (11-32); LACTIC ACID 16.7 mmol/L (0.4-2.0); POTASSIUM 7.6 mmol/L (3.5-5.1)
[2024-03-12 07:57] LABS: APPEARANCE,URINE HAZY (CLEAR); BILIRUBIN,URINE NEGATIVE (NEGATIVE); COLOR,URINE LIGHT YELLOW (YELLOW); GLUCOSE, URINE (UA) NEGATIVE (NEGATIVE); LEUKOCYTE ESTERASE ,URINE NEGATIVE (NEGATIVE); NITRATE,URINE NEGATIVE (NEGATIVE); OCCULT BLOOD,URINE SMALL (NEGATIVE); PH,URINE 6.5 (5.0-8.0); PH,URINE DRUG SCREEN 6.5 (5.0-8.0); PROTEIN,URINE TRACE mg/dL (NEGATIVE); SPECIFIC GRAVITIY, URINE 1.011 (1.003-1.030)
[2024-03-12] MEDS: LACTULOSE 200 GM/300 ML RECTAL SOLUTION PR ONE (08:00)
[2024-03-12] MEDS: PIPERACILLIN/TAZO 3.375 GM/D5W 50 ML IV ONE (08:02)
[2024-03-12] MEDS: SODIUM CHLORIDE 0.9% 2,200 ML IV ONE (08:02)
[2024-03-12 08:03] LABS: ALCOHOL, URINE DRUG SCREEN NEGATIVE (NEGATIVE); AMPHET/METH SCREEN,URINE NEGATIVE (NEGATIVE); BARBITURATE SCREEN, URINE NEGATIVE (NEGATIVE); BENZODIAZEPINES SCREEN,URINE NEGATIVE (NEGATIVE); CANNABINOID SCREEN,URINE NEGATIVE (NEGATIVE); COCAINE SCREEN,URINE NEGATIVE (NEGATIVE); METHADONE SCREEN, URINE NEGATIVE (NEGATIVE); OPIATE SCREEN,URINE NEGATIVE (NEGATIVE); PHENCYCLIDINE SCREEN,URINE NEGATIVE (NEGATIVE)
[2024-03-12 08:06] LABS: GLUCOMETER DEV NAME(LOC) ER.7; GLUCOSE,POINT OF CARE 68 MG/DL (70-110)
[2024-03-12 08:06] LABS: WBC,URINE 0-2 /HPF (0-5)
[2024-03-12 08:07] LABS: BACTERIA,URINE Moderate /HPF (None Seen); SQUAMOUS EPITHELIAL CELL,UR Few /LPF (None Seen)
[2024-03-12 08:10] LABS: ABG BASE EXCESS -24.3 mmol/L (-2.0-3.0); ABG CARBOXYHEMOGLOBIN 3.1 % (0.5-1.5); ABG HCO3 6.8 mmol/L (21.0-28.0); ABG METHEMOGLOBIN 1.8 % (0.0-1.5); ABG OXYGEN CONTENT 3.9 mL/dL (15.0-23.0); ABG OXYHEMOGLOBIN 42.2 % (94.0-98.0); SOURCE, BLOOD GAS ARTERIAL; TEMPERATURE, FAHRENHEIT, BG 92.4 FAHREN (96.0-98.6)
[2024-03-12 08:11] LABS: ABG PCO2 63 mmHg (32.0-48.0); ABG PH 6.816 (7.350-7.450); ABG TOTAL HEMOGLOBIN 6.4 G/dL (13.5-17.5); PO2, ARTERIAL BG 31.1 mmHg (83.0-108.0)
[2024-03-12 08:12] LABS: ABG OXYGEN SATURATION 44.4 % (94.0-98.0); ALLEN TEST, BLOOD GAS Positive; SITE, BLOOD GAS LFT RADIAL
[2024-03-12 08:13] LABS: ABG A-A DIFF O2 627.2 mmHg (10-20.0); O2 DEVICE,BLOOD GAS VENTILATOR (ROOM AIR); PEEP,BG 5 cm H2O; VT, ABG 440 ml
[2024-03-12] MEDS: VASOPRESSIN 40 UNITS in DEXTROSE 5%-WATER 98 ML IV PRN (08:19)
[2024-03-12] MEDS: SODIUM BICARBONATE [ADULT] 8.4% 50 MEQ/50 ML SYRINGE IVP ONE (08:50)
[2024-03-12] MEDS: PANTOPRAZOLE SODIUM 40 MG/VIAL IVP SCH (09:17)
[2024-03-12] MEDS: SODIUM BICARBONATE 150 MEQ in SODIUM CHLORIDE 0.45% 1,000 ML IV ONE (09:45)
[2024-03-12 11:22] LABS: SOURCE, BLOOD GAS ARTERIAL; TEMPERATURE, FAHRENHEIT, BG 88.7 FAHREN (96.0-98.6)
[2024-03-12 11:24] LABS: HEMATOCRIT 24.5 % (41-53); HEMOGLOBIN 7.4 g/dL (13.5-17.5)
[2024-03-12 11:32] LABS: CALCIUM, TOTAL 8.4 mg/dL (8.8-10.5); CREATININE 1.75 mg/dL (0.60-1.30); POTASSIUM 5.3 mmol/L (3.5-5.1)
[2024-03-12 11:44] LABS: ABG BASE EXCESS -20.8 mmol/L (-2.0-3.0); ABG CARBOXYHEMOGLOBIN 2.2 % (0.5-1.5); ABG HCO3 9.6 mmol/L (21.0-28.0); ABG METHEMOGLOBIN 1.8 % (0.0-1.5); ABG OXYGEN CONTENT 11.2 mL/dL (15.0-23.0); ABG OXYGEN SATURATION 99.1 % (94.0-98.0); ABG OXYHEMOGLOBIN 95.1 % (94.0-98.0); ABG PCO2 25 mmHg (32.0-48.0); ABG TOTAL HEMOGLOBIN 8.1 G/dL (13.5-17.5); PO2, ARTERIAL BG 129.2 mmHg (83.0-108.0)
[2024-03-12 11:45] LABS: ABG PH 7.147 (7.350-7.450)
[2024-03-12 11:46] LABS: ALLEN TEST, BLOOD GAS Positive; O2 DEVICE,BLOOD GAS VENTILATOR (ROOM AIR); PEEP,BG 10 cm H2O; SITE, BLOOD GAS RT RADIAL; VT, ABG 440 ml
[2024-03-12] MEDS ORDERED: SODIUM CHLORIDE 0.9% 500 ML IV ONE (12:04)
[2024-03-12] MEDS: EPINEPHrine 5 MG in DEXTROSE 5%-WATER 245 ML IV PRN (12:48)
[2024-03-12] MEDS ORDERED: SODIUM CHLORIDE 0.9% 250 ML IV ONE (13:10)
[2024-03-12] MEDS: PIPERACILLIN/TAZO 3.375 GM/D5W 50 ML IV SCH (14:19)
[2024-03-12] MEDS: INFLUENZA VIRUS VACCINE TVS (6MO+) 2024-25/PF 45 MCG/0.5 ML SYRINGE IM. ONE (16:39)
[2024-03-12] MEDS: HYDROCORTISONE SOD SUCC 100 MG/2 ML VIAL IVP SCH (17:55)
[2024-03-12 20:37] LABS: MEAN CORPUSCULAR HEMOGLOBIN 27.2 pg (26.0-34.0); MEAN CORPUSCULAR HGB CONC 28.5 G/dL (31.0-37.0); MEAN CORPUSCULAR VOLUME 96 fL (80-100); PLATELET COUNT (AUTO) 206 K/uL (150-450); RED BLOOD CELL COUNT(AUTO) 1.57 MIL/uL (4.50-5.90); RED CELL DISTRIBUTION WIDTH 19.6 % (11.5-14.5); WHITE BLOOD COUNT (AUTO) 18.6 K/uL (4.5-11.0)
[2024-03-12 20:48] LABS: HEMOGLOBIN 4.3 g/dL (13.5-17.5)
[2024-03-12 20:54] LABS: ABG CARBOXYHEMOGLOBIN 1.1 % (0.5-1.5); ABG HCO3 5.4 mmol/L (21.0-28.0); ABG METHEMOGLOBIN 0.1 % (0.0-1.5); ABG OXYGEN CONTENT 7.4 mL/dL (15.0-23.0); ABG OXYGEN SATURATION 99.7 % (94.0-98.0); ABG OXYHEMOGLOBIN 98.5 % (94.0-98.0); SOURCE, BLOOD GAS ARTERIAL; TEMPERATURE, FAHRENHEIT, BG 86.5 FAHREN (96.0-98.6)
[2024-03-12 20:56] LABS: BILIRUBIN,TOTAL 2.5 mg/dL (0.1-1.0); CALCIUM, TOTAL 7.5 mg/dL (8.8-10.5); CREATININE 2.07 mg/dL (0.60-1.30); MAGNESIUM 2.5 mg/dL (1.80-2.40); TOTAL PROTEIN, SERUM 3.3 g/dL (6.4-8.2)
[2024-03-12 21:03] LABS: POTASSIUM 6.3 mmol/L (3.5-5.1)
[2024-03-12 21:23] LABS: PHOSPHORUS 9.6 mg/dL (2.5-4.9)
[2024-03-12 21:30] LABS: BAND NEUTROPHILS % (MANUAL) 16 % (0-5); LYMPHOCYTES % (MANUAL) 12 % (22-44); METAMYELOCYTES % 5 % (0-0); MONOCYTES % (MANUAL) 6 % (2-9); SEGMENTED NEUTROPHILS % 61 % (40-70); TOTAL CELLS COUNTED 100
[2024-03-12 21:32] LABS: RBC MORPHOLOGY COMMENT NORMAL RBC MORPH
[2024-03-12 21:40] LABS: ABG PH 7.112 (7.350-7.450)
[2024-03-12 21:41] LABS: ABG A-A DIFF O2 484.9 mmHg (10-20.0); ABG PCO2 11 mmHg (32.0-48.0); ABG TOTAL HEMOGLOBIN 4.2 G/dL (13.5-17.5); PO2, ARTERIAL BG 484.9 mmHg (83.0-108.0); SITE, BLOOD GAS LFT FEMORAL
[2024-03-12 21:42] LABS: O2 DEVICE,BLOOD GAS VENT (ROOM AIR); PEEP,BG 10 cm H2O; VT, ABG 440 ml
[2024-03-12] MEDS ORDERED: CHLORHEXIDINE GLUCONATE 2% TOWELETTE [2'S/6'S] TP SCH (22:00)
== END 2024-03-12 21:29 | DRG 871 ==
LOC: EMS 06:30 → EDH 07:21 → UNDOADMIN 09:30 → EDH 09:30 → ICU 12:00
PROVIDERS: ADMIT Internal Medicine; ATTEND Internal Medicine
PROC: 5A1935Z Respiratory Ventilation, Less than 24 Consecutive Hours (ICD-10-PCS; principal; 2024-03-12)
PROC: 06HY33Z Insertion of Infusion Device into Lower Vein, Percutaneous Approach (ICD-10-PCS; 2024-03-12)
PROC: 30233N1 Transfusion of Nonautologous Red Blood Cells into Peripheral Vein, Percutaneous Approach (ICD-10-PCS; 2024-03-12)
PROC: B54BZZA Ultrasonography of Right Lower Extremity Veins, Guidance (ICD-10-PCS; 2024-03-12)
PROC: 5A12012 Performance of Cardiac Output, Single, Manual (ICD-10-PCS; 2024-03-12)
DX: A41.9 Sepsis, unspecified organism (principal); G92.8 Other toxic encephalopathy; J69.0 Pneumonitis due to inhalation of food and vomit; J96.01 Acute respiratory failure with hypoxia; K66.1 Hemoperitoneum; R65.21 Severe sepsis with septic shock; K72.00 Acute and subacute hepatic failure without coma; K92.2 Gastrointestinal hemorrhage, unspecified; N17.9 Acute kidney failure, unspecified; Z99.11 Dependence on respirator [ventilator] status; G93.1 Anoxic brain damage, not elsewhere classified; D62 Acute posthemorrhagic anemia; E87.20 Acidosis, unspecified; C78.00 Secondary malignant neoplasm of unspecified lung; D68.9 Coagulation defect, unspecified; Z66 Do not resuscitate; I46.9 Cardiac arrest, cause unspecified; E83.52 Hypercalcemia; E87.5 Hyperkalemia; R57.8 Other shock; D49.89 Neoplasm of unspecified behavior of other specified sites; G43.909 Migraine, unspecified, not intractable, without status migrainosus; G89.3 Neoplasm related pain (acute) (chronic); K76.82 Hepatic encephalopathy; N18.9 Chronic kidney disease, unspecified; Z51.5 Encounter for palliative care; Z85.028 Personal history of other malignant neoplasm of stomach; Z87.891 Personal history of nicotine dependence
CPT/HCPCS: 36600; 51702; 71045; 80048; 80053; 80307; 81001; 82140; 82550; 82805; 82962; 83605; 83735; 84100; 84132; 84484; 85014; 85018; 85025; 85610; 85730; 86850; 86900; 86901; 86920; 86923; 87040; 87081; 87086; 87481; 93005; 94002; 99285; J0171; J1265; J1720; J2370; J2470; J2543; J3490; J7030; J7040; J7050; J7060; P9016; 36415-L1; 36415-TC